=== PATIENT | male | born 1955 | race Caucasian/White ===

== ENCOUNTER 2016-10-25 11:20 | Emergency (ER) ==
[2016-10-25 11:28] VITALS: BP 99/66; TEMP 97.2; BMI 20.9
--- NOTE | 2016-10-25 11:35 | ED.PDOC ---
General ED Provider: Dr. MORRO SANTIAGO JR Chief Complaint: Shortness of Air Stated Complaint: short of breath; low blood pressure; was numb on the left; both legs hurting; buttocks numb; too hot two days ago,sweating, legs numb& hurt sweating stopped[ End ]97.2 79 16 98% 99/66 09/13 Time Seen by Physician: 11:39 Mode of Arrival: Walk-In Information Source: Patient Exam Limitations: No limitations Primary Care Provider: [facility] Nursing and Triage Documentation Reviewed and Agree: No Review of Systems - Review Of Systems Constitutional: Reports: Malaise, Weakness Eyes: Reports: No symptoms Ears, Nose, Mouth, Throat: Reports: No symptoms Respiratory: Reports: Short of air Cardiac: Reports: Chest pain GI: Reports: No symptoms : Reports: Other Musculoskeletal: Reports: No symptoms Skin: Reports: No symptoms Neurological: Reports: Numbness, Tingling, Weakness (both lower extremities) Endocrine: Reports: No symptoms Hematologic/Lymphatic: Reports: No symptoms All Other Systems: Other Past Medical History - Past Medical History Endocrine: Denies: DM 2 (hypoglycemia) Cardiovascular: Reports: MA, DVT (dvt left leg post injury ) Respiratory: Reports: None Hematological: Reports: None Gastrointestinal: Reports: None Genitourinary: Reports: None Neuro/Psych: Reports: None Musculoskeletal: Reports: None Cancer: Reports: None - Surgical History General Surgical History: Reports: Stent, Heart Cath - Family History Family History: Reports: Unknown - Social History Smoking Status: Current every day smoker Hx Substance Use: No Alcohol Screening: None Physical Exam - Physical Exam Appearance: Well-appearing, Thin Pain Distress: Moderate Eyes: JANE, EOMI, Conjunctiva clear ENT: Ears normal, Nose normal, Oropharynx normal Neck: Supple Respiratory: Airway patent, Breath sounds clear, Breath sounds equal, Respirations nonlabored Cardiovascular: RRR, Pulses normal, No rub, No murmur GI/: Soft, Nontender, No masses, Bowel sounds normal, No Organomegaly Musculoskeletal: Normal strength, ROM intact, No edema, No calf tenderness Skin: Warm, Dry, Normal color Neurological: Sensation intact, Motor intact, Reflexes intact, Cranial nerves intact, Alert, Oriented Psychiatric: Affect appropriate, Mood appropriate, Anxious Interpretation - Radiology Interpretation Radiology Interpretation By: Radiologist Radiology Results: Negative Exam Interpreted: CXR - EKG Interpretation Time of EKG #1: 11:50 Rate: Normal Rhythm: Sinus Ectopy: None [place]: NL ST Segment: Normal (lateral leads with R R') Critical Care Note - Critical Care Note Total Time (mins): 0 Course - Course Hematology/Chemistry: 10/25/16 11:55 10/25/16 11:55 Orders, Labs, Meds: Lab Review 10/25/16 10/25/16 11:50 11:55 WBC 13.87 H RBC 4.49 L Hgb 14.1 Hct 40.2 L MCV 89.5 MCH 31.4 H MCHC 35.1 RDW Coeff of Lizzette 13.3 Plt Count 232 Immature Gran % (Auto) 0.4 Neut % (Auto) 70.7 Lymph % (Auto) 20.3 [place] % (Auto) 7.7 Eos % (Auto) 0.6 Baso % (Auto) 0.3 Immature Gran # (Auto) 0.1 Neut # 9.8 H Lymph # 2.8 [place] # 1.1 Eos # 0.1 Baso # 0.0 D-Dimer (Manual) 2131.88 Puncture Site Rbrachial O2 Saturation 97.0 ABG pH 7.417 ABG pCO2 36.6 ABG pO2 85.0 ABG HCO3 23.6 ABG Total CO2 25 ABG Base Excess -1 Erasmo Test + FiO2 % 21.0 Sodium 138 Potassium 3.9 Chloride 105 Carbon Dioxide 19 L Anion Gap 17.9 BUN 18 Creatinine 1.03 Estimated GFR (MDRD) 74.00 BUN/Creatinine Ratio 17.47 Glucose 113 Calcium 9.4 Total Bilirubin 0.55 AST 15 ALT 15 Alkaline Phosphatase 79 Total Creatine Kinase 291 CK-MB (CK-2) 4.3 H CK-MB (CK-2) % 1.91341 Troponin I < 0.0100 B-Natriuretic Peptide < 10 Total Protein 7.6 Albumin 3.6 Globulin 4.0 Albumin/Globulin Ratio 0.90 Procalcitonin < 0.05 Orders Category Date Time Status ABG DRAW REQUEST Stat CARDIO 10/25/16 11:54 Completed EKG-(ED ONLY) Stat CARDIO 10/25/16 11:40 Completed NPO REMINDER: IMAGING ONCE CARE 10/25/16 13:35 Completed ED MANAGER EMERGENCY APPLIED .ONCE EMERGENCY 10/25/16 11:40 Active ABG Stat LAB 10/25/16 11:50 Completed B-TYPE NATRIURETIC PEPTIDE Stat LAB 10/25/16 11:55 Completed BLOOD CULTURE Stat LAB 10/25/16 11:55 Received CBC W/ AUTO DIFF Stat LAB 10/25/16 11:55 Completed COMPREHENSIVE METABOLIC PANEL Stat LAB 10/25/16 11:55 Completed CREATINE KINASE Stat LAB 10/25/16 11:55 Completed D-DIMER Stat LAB 10/25/16 11:55 Completed PROCALCITONIN Stat LAB 10/25/16 11:55 Completed TROPONIN I Stat LAB 10/25/16 11:55 Completed 0.9 % Sodium Chloride [Saline Flush] MEDS 10/25/16 11:40 Ordered 1 syr IVF PRN PRN Sodium Chloride 0.9% [Sodium Chloride] 1,000 ml MEDS 10/25/16 11:40 Discontinued IV BOLUS Sodium Chloride 0.9% [Sodium Chloride] 1,000 ml MEDS 10/25/16 14:09 Active IV BOLUS CHEST, 1V AP ONLY Stat RADS 10/25/16 11:[address] CHEST PE PROTOCOL Stat RADS 10/25/16 13:35 Completed Medications Generic Name Dose Route Start Last Admin Trade Name Freq PRN Reason Stop Dose Admin Sodium Chloride 1,000 mls @ 1,000 mls/hr 10/25/16 14:09 10/25/16 14:16 Sodium Chloride IV 10/25/16 15:08 1,000 mls/hr BOLUS STA Administration Sodium Chloride 1 syr 10/25/16 11:40 10/25/16 11:57 Saline Flush IVF 1 syr PRN PRN Administration To flush IV Discontinued Medications Generic Name Dose Route Start Last Admin Trade Name Freq PRN Reason Stop Dose Admin Sodium Chloride 1,000 mls @ 1,000 mls/hr 10/25/16 11:40 10/25/16 11:56 Sodium Chloride IV 10/25/16 12:39 1,000 mls/hr BOLUS STA Administration Vital Signs: Temp Pulse Resp BP Pulse Ox 10/25/16 11:23 97.2 F L 79 16 99/66 98 CAMMY Risk Score CAMMY Risk Score: Risk Score Odds of by 30D 0 0.1 (0.1-0.2) 1 0.3 (0.2-0.3) 2 0.4 (0.3-0.5) 3 0.7 (0.6-0.9) 4 1.2 (1.0-1.5) 5 2.2 (1.9-2.6) 6 3.0 (2.5-3.6) 7 4.8 (3.8-6.1) Departure - Departure Time of Disposition: 14:22 Disposition: HOME SELF-CARE Discharge Problem: Bronchitis, Numbness and tingling of both lower extremities Instructions: Acute Bronchitis (ED), Paresthesia (ED) Condition: Good Pt referred to PMD for follow-up: Yes Additional Instructions: follow up with PMD discuss symptoms in legs and thighs consider Neurology consult follow up 3-5 days cough medication for three days check temperature once daily inform PMD if over 101.0 return if worse return if mental changes or incontinence Prescriptions: Guaifenesin/Codeine Phosphate [Robitussin AC Syrup] 10 ml PO Q6H PRN #240 ml PRN Reason: Cough Allergies/Adverse Reactions: Allergies No Known Allergies Allergy (Unverified 10/25/16 11:26) Home Medications: Ambulatory Orders Aspirin [Aspirin Chewable] 81 mg PO DAILYWM 10/25/16 Guaifenesin/Codeine Phosphate [Robitussin AC Syrup] 10 ml PO Q6H PRN #240 ml
[2016-10-25] MEDS ORDERED: SODIUM CHLORIDE 1,000 ML IV STA ×2 (11:40→14:09)
[2016-10-25 12:01] LABS: ABG BASE EXCESS -1 (-2.0-2.0); ABG HCO3 23.6 (22.0-26.0); ABG PCO2 36.6 mmHg (35-45); ABG PH 7.417 (7.35-7.45); ABG TCO2 25 (22.0-28.0)
[2016-10-25 12:01] LABS: BASOPHILS % (AUTO) 0.3 % (0.0-3.0); EOSINOPHILS # (AUTO) 0.1 K/ul (0.0-0.7); EOSINOPHILS % (AUTO) 0.6 % (0.0-7.0); HEMATOCRIT 40.2 % (42.0-52.0); HEMOGLOBIN 14.1 g/dl (14.0-18.0); IMMATURE GRANULOCYTE % (AUTO) 0.4 % (0.0-5.0); LYMPHOCYTES # (AUTO) 2.8 K/uL (0.60-3.4); LYMPHOCYTES % (AUTO) 20.3 (10.0-50.0); MEAN CORPUSCULAR HEMOGLOBIN 31.4 pg (27.0-31.0); MEAN CORPUSCULAR HGB CONC 35.1 (31.8-35.4); MEAN CORPUSCULAR VOLUME 89.5 fl (80.0-94.0); MONOCYTES # (AUTO) 1.1 K/uL (0.4-2.0); MONOCYTES % (AUTO) 7.7 (0-10); NEUTROPHILS # (AUTO) 9.8 K/ul (2.0-6.9); NEUTROPHILS % (AUTO) 70.7; PLATELET COUNT 232 10^3/uL (140-440); RED BLOOD COUNT 4.49 10^6/ul (4.70-6.10); WHITE BLOOD COUNT 13.87 K/ul (4.2-10.2)
--- NOTE | 2016-10-25 12:08 | DI ---
EXAM: Single view of the chest. History: Chest pain. Findings: Heart size is normal. No focal consolidation. No appreciable pleural fluid and no pneum othorax. No acute osseous abnormalities. Scattered calcified granulomas seen within the thorax. A therosclerotic vascular calcifications of the aortic knob. Impression: No acute cardiopulmonary process.
[2016-10-25 12:38] LABS: ALANINE AMINOTRANSFERASE 15 U/L (12-78); ALBUMIN 3.6 g/dL (3.4-5.0); ALKALINE PHOSPHATASE 79 U/L (56-119); ANION GAP 17.9; ASPARTATE AMINO TRANSFERASE 15 U/L (15-37); BILIRUBIN,TOTAL 0.55 mg/dL (0.00-1.20); BLOOD UREA NITROGEN 18 mg/dL (7-18); BUN/CREATININE RATIO 17.47; CALCIUM 9.4 mg/dL (8.2-10.2); CARBON DIOXIDE 19 mmol/L (23-31); CHLORIDE 105 mmol/L (98-107); CREATINE KINASE 291 U/L; CREATININE 1.03 mg/dL (0.60-1.10); GLUCOSE 113 mg/dL (82-115); POTASSIUM 3.9 mmol/L (3.5-5.1); SODIUM 138 mmol/L (136-145); TOTAL PROTEIN 7.6 g/dL (5.8-8.1)
[2016-10-25 12:57] LABS: CREATINE KINASE MB 4.3 ng/ml (0.0-3.6)
--- NOTE | 2016-10-25 14:14 | CT ---
EXAM: CTA of the chest. History: Short of breath, positive D-dimer. Technique: Multiplanar CT images through the thorax were obtained following administration of IV co ntrast. MIP images and 3-D reconstructions were also provided. Findings: Heart size is within normal limits. Great vessels are unremarkable. No pathologically e nlarged thoracic lymph nodes. No pulmonary arterial filling defects. No pneumothorax and no pleural fluid. No suspicious lung masses or lung nodules. Mild diffuse bronc hial wall thickening and basilar peripheral reticular opacities. No consolidated pneumonia. Within the visualized upper abdomen, calcified granulomas within the spleen and liver. No acute oss eous abnormalities. Mild chronic compression deformity involving superior endplate of T5. [place] d sternal fractures. Degenerative changes of the visualized cervical spine. Impression: 1. No pulmonary embolism and no consolidated pneumonia. 2. Mild diffuse bronchial wall thickening most likely infectious or inflammatory etiology. 3. Basilar peripheral reticular opacities could represent subpleural atelectasis or nonspecific int erstitial pneumonitis.
== END 2016-10-25 15:20 | disposition home or self-care (01) ==
LOC: ED 11:20
DX: J40 Bronchitis, not specified as acute or chronic (principal); R20.0 Anesthesia of skin; R53.1 Weakness; R06.02 Shortness of breath; E11.9 Type 2 diabetes mellitus without complications; F17.210 Nicotine dependence, cigarettes, uncomplicated; I25.2 Old myocardial infarction; Z86.718 Personal history of other venous thrombosis and embolism
CPT/HCPCS: 36415; 80053; 82550; 82553; 82803; 83880; 84145; 84484; 85025; 85379; 87040; 93005; 93010; 96360; 96361; 99283